=== PATIENT | female | born 1950 | race Caucasian/White ===

== ENCOUNTER → 2017-06-12 | Outpatient (CLI) | payer OTHER ==
[~2017-06-12] MED LIST: HYDROCODONE-AP1 EAC6 PO; LAMISIL250 MG PO; ZOCOR40 MG PO
== END ==
LOC: RAD 13:06
DX: Z12.31 Encounter for screening mammogram for malignant neoplasm of breast (principal)

== ENCOUNTER → 2018-06-18 | Outpatient (CLI) | payer OTHER | LOC: RAD 01:13 | DX: Z12.31 Encounter for screening mammogram for malignant neoplasm of breast (principal); E78.5 Hyperlipidemia, unspecified ==

== ENCOUNTER → 2019-06-19 | Outpatient (CLI) | payer OTHER ==
[~2019-06-19] MED LIST changes: +MELATONIN3 M1 PO; +VITAMIN D22000 UNIT PO
== END ==
LOC: RAD 09:29
DX: Z12.31 Encounter for screening mammogram for malignant neoplasm of breast (principal)

== ENCOUNTER → 2019-07-24 | Outpatient (CLI) | payer OTHER ==
[~2019-07-24] VITALS: Ht 165.1 cm; Wt 81.2 kg
--- NOTE | ~2019-07-24 | P ---
[facility] [place] [address] PROCEDURE REPORT Name: MIKAYLA CHRISTENSEN Room #: REG [facility].#: [id number] Admission: 07/24/19 Attend Phys: Francisco Payne Discharge: Date of : 50 Report #: [id number] THIS REPORT FOR: //name// CC: Francisco Nelson MD DATE OF SERVICE: 07/24/2019 PROCEDURE PERFORMED: Colonoscopy with polypectomies. HISTORY OF PRESENT ILLNESS: The patient is a 69-year-old female with a history of colon polyps 5 years ago. She is here for routine followup. She denies any symptoms. Possible family history of colon cancer in a grandparent. DESCRIPTION OF PROCEDURE: The risks and benefits of the procedure were explained to the patient, those risks including but not limited to bleeding, perforation and the risk of sedation. She understood these risks and gave informed consent. Sedation was given using propofol per anesthesia. Next, a digital rectal exam showed small external hemorrhoids, otherwise normal. Next, using a standard Olympus colonoscope, the scope was placed in the patient's anus and advanced under direct vision to the cecum. The overall prep was excellent. The cecum and ileocecal valve were normal in appearance. In the ascending colon, a 3 mm sessile polyp was noted. This was removed with cold forceps, otherwise normal. Transverse colon was normal. In the descending colon, a 1 cm sessile polyp was noted. This was removed by snare cautery, otherwise normal. Scattered diverticula were noted in the sigmoid colon, no evidence of inflammation. In the rectum 3-4 mm sessile polyps were noted, all removed by cold forceps. On retroflexion, no abnormalities were noted. The scope was then withdrawn and the procedure terminated. The patient tolerated the procedure well. IMPRESSION: 1. Colonic polyps as described above. 2. Sigmoid diverticulosis. 3. Small external hemorrhoids. 4. Otherwise normal colonoscopy. RECOMMENDATIONS: 1. Await biopsy results. 2. Repeat colonoscopy in [address] [address] PROCEDURE REPORT Name: MIKAYLA CHRISTENSEN Room #: REG [facility] Bernadette#: [id number] Admission: 07/24/19 Attend Phys: Francisco Payne Discharge: Date of : 50 Report #: [id number] Thank you for allowing me to participate in her care. By: [id number] Francisco Juarez MD /nt
--- NOTE | 2019-07-26 20:06 | PATH ---
[facility] [address] [place] [address] PATHOLOGY RPT PROCEDURE Name: LUDMILA NAYAK Room #: REG [facility].#: [id number] Admission: 07/24/19 Date of : 50 Discharge: Report #: [id number] Path Case #: [id number] [facility] Accession Number: [id number] . 01 Material submitted: . PART A: colon - POLYP AT ASCENDING COLON. Modifiers: ascending PART B: colon - POLYP AT DESCENDING COLON. Modifiers: descending PART C: rectum - POLYP AT RECTUM X3 . 01 Clinical history: . Pre-op diagnosis: History of polyp Post-op diagnosis: Colon polyps . 02 Diagnosis: A. "Polyp at ascending colon", biopsy: - Tubular adenoma; no high grade dysplasia. . B. "Polyp at descending colon", biopsy: - Sessile serrated polyp; no dysplasia seen. . C. "Polyp at rectum x 3", biopsy: - Hyperplastic polyp. LBQ 07/26/2019 1028 Local . 02 Comment: Clinical and endoscopic correlation is recommended. (CLW/db; 07/26/2019) . 02 Electronically signed: . Lola Otto MD, Pathologist NPI- [id number] . 01 Gross description: . A. The specimen is received in formalin, labeled "Ludmila Nayak, polyp at ascending colon". Received is a segment of pale piña soft tissue measuring 0.7 cm in maximum dimensions. The specimen is submitted entirely in cassette A1. . B. The specimen is received in formalin, labeled "Ludmila Nayak, polyp at descending colon". Received is a segment of light brown soft tissue measuring 1.2 x 0.6 x 0.5 cm in greatest dimensions. The surgical margin is inked. The specimen is bisected perpendicular to the margin and entirely submitted in cassette B1. . C. The specimen is received in formalin, labeled "Ludmila Nayak, polyp at rectum x3". Received are five segments of pale piña soft tissue ranging in size from 0.2 to 0.3 cm in maximum dimensions. The specimen is submitted [address] [address] PATHOLOGY RPT PROCEDURE Name: LUDMILA NAYAK [facility] [id number] Admission: 07/24/19 Date of : 50 Discharge: Report #: [id number] Path Case #: [id number] entirely in cassette C1. (CAA; 07/25/2019) QA/QA 07/25/2019 0958 Local . 02 Pathologist provided ICD-10: D12.2, D12.4, K62.1 . 02 CPT . 984640, 188365, 048685 Specimen Comment: A courtesy copy of this report has been sent to [phone], [phone] Specimen Comment: [id number] Specimen Comment: Report sent to / DR BERMEO Performed at: [address] [facility] [facility] [id number] [facility] [address], [place] [id number] MD Sal Nobles MD Phone: [phone] Performed at: [address] [id number] MD Karma Ryan MD Phone: [phone]
== END | disposition home or self-care (01) ==
LOC: GI 07-03 10:28
DX: Z12.11 Encounter for screening for malignant neoplasm of colon (principal); Z86.010 Personal history of colon polyps; D12.2 Benign neoplasm of ascending colon; K62.1 Rectal polyp; K57.30 Diverticulosis of large intestine without perforation or abscess without bleeding; K64.4 Residual hemorrhoidal skin tags; E78.5 Hyperlipidemia, unspecified; Z88.8 Allergy status to other drugs, medicaments and biological substances; Z79.899 Other long term (current) drug therapy; Z98.890 Other specified postprocedural states
CPT/HCPCS: 62110; 62900

== ENCOUNTER → 2019-11-20 | Outpatient (CLI) | payer OTHER | LOC: CAT 09:02 | DX: I25.10 Atherosclerotic heart disease of native coronary artery without angina pectoris (principal); E78.00 Pure hypercholesterolemia, unspecified ==

== ENCOUNTER → 2019-11-29 | Outpatient (CLI) | payer OTHER | LOC: SJCVC 13:24 → SJCVCIMAG 13:24 | DX: I07.1 Rheumatic tricuspid insufficiency (principal); R94.31 Abnormal electrocardiogram [ECG] [EKG]; I45.10 Unspecified right bundle-branch block; E78.00 Pure hypercholesterolemia, unspecified; Z79.899 Other long term (current) drug therapy; Z87.891 Personal history of nicotine dependence; Z82.49 Family history of ischemic heart disease and other diseases of the circulatory system ==

== ENCOUNTER → 2021-05-31 | Outpatient (CLI) | payer OTHER, MEDICARE | LOC: SJCVCIMAG 10:02 | PROVIDERS: ATTEND Internal Medicine Cardiovascular Disease | DX: I07.1 Rheumatic tricuspid insufficiency (principal); E78.00 Pure hypercholesterolemia, unspecified; I10 Essential (primary) hypertension; E78.5 Hyperlipidemia, unspecified; R93.1 Abnormal findings on diagnostic imaging of heart and coronary circulation; Z79.82 Long term (current) use of aspirin; Z79.899 Other long term (current) drug therapy ==